=== PATIENT | female | born 1990 | race Caucasian/White ===

== ENCOUNTER 2017-04-04 14:48 | Inpatient (IN) | payer BC, OTHER ==
[2017-04-04] MEDS ORDERED: RINGERS SOLUTION,LACTATED 300 ML IV ONE (15:42)
[2017-04-04] MEDS ORDERED: DINOPROSTONE 10 MG VAGINAL INSERT.SR PV PRN (15:42)
[2017-04-04] MEDS ORDERED: OXYTOCIN/NORMAL SALINE 1,000 ML IV PRN (15:42)
[2017-04-04] MEDS ORDERED: DINOPROSTONE 10 MG VAGINAL INSERT.SR ONE (16:08)
[2017-04-04 16:12] LABS: AMORPHOUS SEDIMENT,URINE TRACE /HPF; APPEARANCE,URINE CLOUDY; BILIRUBIN,URINE NEGATIVE (NEGATIVE); CALCIUM OXALATE CRYSTALS,URINE TOO NUMEROUS TO CNT /HPF; GLUCOSE, URINE NEGATIVE (NEGATIVE); KETONES,URINE NEGATIVE (NEGATIVE); LEUKOCYTE ESTERASE,URINE MODERATE (NEGATIVE); NITRITE,URINE NEGATIVE (NEGATIVE); PROTEIN,URINE 100 mg/dL (NEGATIVE); URINE SPECIFIC GRAVITY 1.018; UROBILINOGEN,URINE NEGATIVE mg/dL (<2.0)
[2017-04-04 16:24] LABS: URINE BARBITURATES SCREEN NEGATIVE; URINE METHADONE SCREEN NEGATIVE; URINE OPIATES LOW NEGATIVE; URINE PHENCYCLIDINE SCREEN NEGATIVE
[2017-04-04 16:28] LABS: URINE CREATININE 189.8 mg/dL (16-327); URINE PROTEIN 134.3 mg/dL (<12)
[2017-04-04] MEDS: RINGERS SOLUTION,LACTATED 1,000 ML IV PRN (16:30)
[2017-04-04 16:35] LABS: ABSOLUTE EOSINOPHILS # (AUTO) 0.1 10^3/uL (0.0-0.6); ABSOLUTE LYMPHOCYTES (AUTO) 1.5 10^3/uL (0.5-4.7); ABSOLUTE MONOCYTES (AUTO) 0.8 10^3/uL (0.1-1.4); ABSOLUTE NEUT (AUTO) 6.8 10^3/uL (1.7-8.2); BASOPHILS % (AUTO) 0.5 % (0-2); EOSINOPHILS % (AUTO) 0.6 % (0-6); HEMATOCRIT 37.5 % (36.0-47.0); HEMOGLOBIN 12.9 g/dL (12.0-15.5); HGB HCT DIFFERENCE 1.2; LYMPHOCYTES % (AUTO) 16.4 % (13-45); MEAN CORPUSCULAR HEMOGLOBIN 30.3 pg (27.0-33.4); MEAN CORPUSCULAR HGB CONC 34.5 g/dL (32.0-36.0); MEAN CORPUSCULAR VOLUME 88 fl (80-97); MONOCYTES % (AUTO) 8.6 % (3-13); RED BLOOD COUNT 4.26 10^6/uL (3.72-5.28); RED CELL DISTRIBUTION WIDTH 12.8 % (11.5-14.0); SEGMENTED NEUTROPHILS % (AUTO) 73.9 % (42-78); WHITE BLOOD COUNT 9.2 10^3/uL (4.0-10.5)
[2017-04-04 16:54] LABS: ALANINE AMINOTRANSFERASE 32 U/L (9-52); ALBUMIN 3.1 g/dL (3.5-5.0); ALKALINE PHOSPHATASE 251 U/L (38-126); ANION GAP 9 (5-19); ASPARTATE AMINO TRANSFERASE 17 U/L (14-36); BILIRUBIN,DIRECT 0.2 mg/dL (0.0-0.4); BILIRUBIN,TOTAL 0.5 mg/dL (0.2-1.3); BLOOD UREA NITROGEN 9 mg/dL (7-20); CALCIUM 9.6 mg/dL (8.4-10.2); CARBON DIOXIDE 21 mmol/L (22-30); CHLORIDE 106 mmol/L (98-107); CREATININE RESULT 0.56 mg/dL (0.52-1.25); GLUCOSE 80 mg/dL (75-110); LDH 451 U/L (313-618); POTASSIUM 4.3 mmol/L (3.6-5.0); SODIUM 136.2 mmol/L (137-145); TOTAL PROTEIN 5.6 g/dL (6.3-8.2); URIC ACID 6.2 mg/dL (2.5-6.2)
[2017-04-04] MEDS ORDERED: HYDRALAZINE HCL INJ/PF 20 MG/1 ML SDV ONE (16:55)
[2017-04-04] MEDS ORDERED: HYDRALAZINE HCL INJ/PF 20 MG/1 ML SDV IV ONE (17:03)
[2017-04-04] MEDS ORDERED: ZOLPIDEM TARTRATE 5 MG TABLET PO ONE (20:38)
[2017-04-04] MEDS ORDERED: ZOLPIDEM TARTRATE 5 MG TABLET ONE (20:46)
[2017-04-05 05:24] LABS: ABSOLUTE BASOPHILS # (AUTO) 0.1 10^3/uL (0.0-0.2); ABSOLUTE EOSINOPHILS # (AUTO) 0.1 10^3/uL (0.0-0.6); ABSOLUTE LYMPHOCYTES (AUTO) 1.9 10^3/uL (0.5-4.7); ABSOLUTE NEUT (AUTO) 7.8 10^3/uL (1.7-8.2); BASOPHILS % (AUTO) 0.5 % (0-2); EOSINOPHILS % (AUTO) 0.8 % (0-6); HEMATOCRIT 40.7 % (36.0-47.0); HEMOGLOBIN 13.6 g/dL (12.0-15.5); HGB HCT DIFFERENCE 0.1; LYMPHOCYTES % (AUTO) 17.6 % (13-45); MEAN CORPUSCULAR HEMOGLOBIN 29.8 pg (27.0-33.4); MEAN CORPUSCULAR HGB CONC 33.5 g/dL (32.0-36.0); MEAN CORPUSCULAR VOLUME 89 fl (80-97); MONOCYTES % (AUTO) 8.9 % (3-13); RED BLOOD COUNT 4.57 10^6/uL (3.72-5.28); RED CELL DISTRIBUTION WIDTH 13.2 % (11.5-14.0); SEGMENTED NEUTROPHILS % (AUTO) 72.2 % (42-78); WHITE BLOOD COUNT 10.9 10^3/uL (4.0-10.5)
[2017-04-05 05:43] LABS: ALANINE AMINOTRANSFERASE 16 U/L (9-52); ALBUMIN 3.1 g/dL (3.5-5.0); ALKALINE PHOSPHATASE 236 U/L (38-126); ANION GAP 7 (5-19); ASPARTATE AMINO TRANSFERASE 31 U/L (14-36); BILIRUBIN,DIRECT 0.4 mg/dL (0.0-0.4); BILIRUBIN,TOTAL 0.9 mg/dL (0.2-1.3); BLOOD UREA NITROGEN 7 mg/dL (7-20); CALCIUM 9.5 mg/dL (8.4-10.2); CARBON DIOXIDE 20 mmol/L (22-30); CHLORIDE 110 mmol/L (98-107); CREATININE RESULT 0.56 mg/dL (0.52-1.25); GLUCOSE 75 mg/dL (75-110); LDH 666 U/L (313-618); POTASSIUM 5.2 mmol/L (3.6-5.0); SODIUM 136.8 mmol/L (137-145); TOTAL PROTEIN 5.7 g/dL (6.3-8.2); URIC ACID 6.5 mg/dL (2.5-6.2)
[2017-04-05] MEDS ORDERED: MISOPROSTOL 0.1 MG TABLET PO ONE (05:50)
[2017-04-05] MEDS ORDERED: MISOPROSTOL 0.1 MG TABLET ONE ×2 (05:55→10:50)
--- NOTE | 2017-04-05 08:50 | L&D Progress Notes ---
PROGRESS NOTES Datetime Report Generated by CPN: 04/05/2017 08:49 PROGRESS NOTE Impression: Reassuring Heart Rate Plan: Continue Present Management; Cervical Ripening; Anticipate Vaginal Delivery Informed Consent Obtained: Vaginal Delivery Vital Signs : Reviewed; Within Normal Limits Comment: resting in bed, admitted for IOL for Pre-e, cytotec in place, Cat 1 strip, plans on epidural VAGINAL EXAM Dilatation: 0 Effacement: 0 Station: -3 MEMBRANES Membranes: Intact Membranes: Intact FETUS A FHR - Baseline: 140 Monitoring: External US Variability: Moderate 6-25bpm Accelerations: 15X15 Decelerations: None : 37.2 : 37.2 Presentation: Vertex SIGNATURE SIGNATURE: [id number] Assignment: Gwendolyn Mercado MD Signature: with User ID: [email or web address] : with User ID: [email or web address]
--- NOTE | 2017-04-05 16:16 | L&D Progress Notes ---
PROGRESS NOTES Datetime Report Generated by CPN: 04/05/2017 16:16 PROGRESS NOTE Impression: Gest. HTN/PreEclampsia/Eclampsia Plan: Cervical Ripening Informed Consent Obtained: Induction of Labor Comment: pt denies preeclampsia sxs. Plan cervidil again as cervix still to firm and long for mechanical dilation. Recheck labs in am. FETUS A FHR Category: Category I FETUS C SIGNATURE: [id number] Signature: with User ID: [email or web address]
[2017-04-05] MEDS ORDERED: DINOPROSTONE 10 MG VAGINAL INSERT.SR ONE (17:01)
[2017-04-05] MEDS ORDERED: ZOLPIDEM TARTRATE 5 MG TABLET ONE (20:19)
[2017-04-05] MEDS ORDERED: ZOLPIDEM TARTRATE 5 MG TABLET PO ONE (20:21)
[2017-04-06] MEDS ORDERED: OXYTOCIN/NORMAL SALINE 1,000 ML IV PRN (06:27)
[2017-04-06 06:29] LABS: ALANINE AMINOTRANSFERASE 24 U/L (9-52); ALBUMIN 3.1 g/dL (3.5-5.0); ALKALINE PHOSPHATASE 247 U/L (38-126); ANION GAP 8 (5-19); ASPARTATE AMINO TRANSFERASE 21 U/L (14-36); BILIRUBIN,DIRECT 0.2 mg/dL (0.0-0.4); BILIRUBIN,TOTAL 0.8 mg/dL (0.2-1.3); BLOOD UREA NITROGEN 5 mg/dL (7-20); CARBON DIOXIDE 20 mmol/L (22-30); CHLORIDE 108 mmol/L (98-107); CREATININE RESULT 0.57 mg/dL (0.52-1.25); GLUCOSE 72 mg/dL (75-110); LDH 410 U/L (313-618); POTASSIUM 4.5 mmol/L (3.6-5.0); SODIUM 135.5 mmol/L (137-145); TOTAL PROTEIN 5.8 g/dL (6.3-8.2); URIC ACID 7.1 mg/dL (2.5-6.2)
[2017-04-06] MEDS ORDERED: OXYTOCIN/NORMAL SALINE 20 UNIT/1,000 ML RTUINJ ONE (06:35)
[2017-04-06 06:38] LABS: ABSOLUTE BASOPHILS # (AUTO) 0.1 10^3/uL (0.0-0.2); ABSOLUTE EOSINOPHILS # (AUTO) 0.1 10^3/uL (0.0-0.6); ABSOLUTE LYMPHOCYTES (AUTO) 1.7 10^3/uL (0.5-4.7); ABSOLUTE MONOCYTES (AUTO) 0.9 10^3/uL (0.1-1.4); ABSOLUTE NEUT (AUTO) 8.1 10^3/uL (1.7-8.2); BASOPHILS % (AUTO) 0.5 % (0-2); EOSINOPHILS % (AUTO) 0.5 % (0-6); HEMATOCRIT 39.5 % (36.0-47.0); HEMOGLOBIN 13.4 g/dL (12.0-15.5); HGB HCT DIFFERENCE 0.7; LYMPHOCYTES % (AUTO) 15.9 % (13-45); MEAN CORPUSCULAR HEMOGLOBIN 29.8 pg (27.0-33.4); MEAN CORPUSCULAR VOLUME 88 fl (80-97); RED CELL DISTRIBUTION WIDTH 13.1 % (11.5-14.0); SEGMENTED NEUTROPHILS % (AUTO) 75.1 % (42-78); WHITE BLOOD COUNT 10.8 10^3/uL (4.0-10.5)
[2017-04-06] MEDS ORDERED: PROMETHAZINE HCL INJ 25 MG/1 ML VIAL IV ONE (06:46)
[2017-04-06] MEDS ORDERED: PROMETHAZINE HCL INJ 25 MG/1 ML VIAL ONE (06:50)
[2017-04-06] MEDS ORDERED: NALBUPHINE HCL INJ 10 MG/1 ML AMPULE ONE (10:11)
[2017-04-06] MEDS ORDERED: ONDANSETRON HCL INJ/PF 4 MG/2 ML SDV ONE (10:11)
[2017-04-06] MEDS ORDERED: NALBUPHINE HCL INJ 10 MG/1 ML AMPULE IV ONE (10:13)
[2017-04-06] MEDS ORDERED: ONDANSETRON HCL INJ/PF 4 MG/2 ML SDV IV ONE (10:13)
[2017-04-06] MEDS ORDERED: EPHEDRINE SULFATE INJ 50 MG/1 ML AMPULE ONE ×2 (10:58→17:01)
[2017-04-06] MEDS ORDERED: PHENYLEPHRINE HCL INJ/PF 10 MG/1 ML SDV ONE ×2 (10:58→17:01)
[2017-04-06] MEDS ORDERED: FENTANYL CITRATE INJ/PF 100 MCG/2 ML AMPUL ONE ×2 (10:58→17:01)
[2017-04-06] MEDS ORDERED: FENTANYL/BUPIVACAINE/NS/PF 0 MCG/0 ML RTUINJ EPI ONE (10:59)
[2017-04-06] MEDS ORDERED: BUPIVACAINE HCL 0.25 % INJ/PF (2.5 MG/1 ML) 30 ML VIAL ONE ×2 (10:59→17:02)
--- NOTE | 2017-04-06 11:08 | L&D Progress Notes ---
PROGRESS NOTES Datetime Report Generated by CPN: 04/06/2017 11:07 PROGRESS NOTE Impression: Normal Progression of Labor Procedures: Sterile Vag Exam Plan: Continue Present Management; Cervical Ripening Informed Consent Obtained: Vaginal Delivery; Induction of Labor; Risks, Benefits and Alternatives Discussed Vital Signs : Reviewed; Within Normal Limits Comment: 37+4ega presents for IOL due to PreE and 24 hr UTP of greater than 1200. Pt recieved Cervidil on Tu and then cytotec yesterday and then began pitocin this morning. cvx 1/50/-2. cooks catheter placed. will continue iol. VAGINAL EXAM Dilatation: 1 Effacement: 50 Station: -2 Contractions: rare FETUS A FHR - Baseline: 145 Monitoring: External US Variability: Moderate 6-25bpm Accelerations: 15X15 Decelerations: None FHR Category: Category I SIGNATURE SIGNATURE: [id number] Signature: with User ID: [email or web address]
[2017-04-06] MEDS ORDERED: HYDRALAZINE HCL INJ/PF 20 MG/1 ML SDV ONE (12:22)
--- NOTE | 2017-04-06 14:59 | L&D Progress Notes ---
PROGRESS NOTES Datetime Report Generated by CPN: 04/06/2017 14:59 PROGRESS NOTE Impression: Normal Progression of Labor Procedures: Sterile Vag Exam Plan: Continue Present Management; Induction; Cervical Ripening Informed Consent Obtained: Vaginal Delivery; Induction of Labor; Risks, Benefits and Alternatives Discussed Vital Signs : Reviewed; Within Normal Limits Comment: pt with Cooks in place. Vaginal portion partially deflated and cervix 3cm/50. Vaginal bulb reinflated. kaley give pit rest and D5W. Then restart pitocin at half. Pt now also desires epidural. Anticiapte . VAGINAL EXAM Dilatation: 3 Effacement: 50 FETUS A FHR - Baseline: 150 Monitoring: External US Variability: Moderate 6-25bpm Accelerations: 15X15 Decelerations: None FHR Category: Category I FETUS C SIGNATURE: [id number] Signature: with User ID: [email or web address]
[2017-04-06 15:07] LABS: ABSOLUTE LYMPHOCYTES (AUTO) 1.4 10^3/uL (0.5-4.7); ABSOLUTE MONOCYTES (AUTO) 0.9 10^3/uL (0.1-1.4); ABSOLUTE NEUT (AUTO) 10.4 10^3/uL (1.7-8.2); BASOPHILS % (AUTO) 0.3 % (0-2); EOSINOPHILS % (AUTO) 0.1 % (0-6); HEMOGLOBIN 13.4 g/dL (12.0-15.5); HGB HCT DIFFERENCE -0.8; LYMPHOCYTES % (AUTO) 10.7 % (13-45); MEAN CORPUSCULAR HEMOGLOBIN 29.1 pg (27.0-33.4); MEAN CORPUSCULAR HGB CONC 32.8 g/dL (32.0-36.0); MEAN CORPUSCULAR VOLUME 89 fl (80-97); MONOCYTES % (AUTO) 7.2 % (3-13); RED BLOOD COUNT 4.62 10^6/uL (3.72-5.28); RED CELL DISTRIBUTION WIDTH 12.8 % (11.5-14.0); SEGMENTED NEUTROPHILS % (AUTO) 81.7 % (42-78); WHITE BLOOD COUNT 12.7 10^3/uL (4.0-10.5)
[2017-04-06 15:32] LABS: ALANINE AMINOTRANSFERASE 26 U/L (9-52); ALBUMIN 3.2 g/dL (3.5-5.0); ALKALINE PHOSPHATASE 271 U/L (38-126); ANION GAP 11 (5-19); ASPARTATE AMINO TRANSFERASE 20 U/L (14-36); BILIRUBIN,DIRECT 0.2 mg/dL (0.0-0.4); BILIRUBIN,TOTAL 0.9 mg/dL (0.2-1.3); BLOOD UREA NITROGEN 6 mg/dL (7-20); CALCIUM 10.1 mg/dL (8.4-10.2); CARBON DIOXIDE 19 mmol/L (22-30); CHLORIDE 106 mmol/L (98-107); CREATININE RESULT 0.59 mg/dL (0.52-1.25); GLUCOSE 63 mg/dL (75-110); POTASSIUM 4.6 mmol/L (3.6-5.0); SODIUM 136.4 mmol/L (137-145); URIC ACID 7.4 mg/dL (2.5-6.2)
[2017-04-06] MEDS ORDERED: FENTANYL/BUPIVACAINE/NS/PF 200 MCG/100 ML RTUINJ EPI ONE (17:02)
--- NOTE | 2017-04-06 21:44 | L&D Progress Notes ---
PROGRESS NOTES Datetime Report Generated by VANESSA: 04/06/2017 21:44 PROGRESS NOTE Impression: Normal Progression of Labor Procedures: Intrauterine Pressure Catheter; Sterile Vag Exam Plan: Continue Present Management; Induction Informed Consent Obtained: Vaginal Delivery; Risks, Benefits and Alternatives Discussed Vital Signs : Reviewed; Within Normal Limits Comment: 37+4ega admitted for PreE and 24 hr UTP greater than 1200. Cvx at admission on 04/04 was closed/thick/hi. Pt recieved cervidil overnight on 04/04 and then on 04/05 recieved cytotec then was on pitocin by this morning when I accepted care of the patient. She was given Cooks catheter which did effect some change in her cervix but mechanical dilation cervical change an dnot in labor yet. Pt ws having sporadic ctx despite pitocin at 20 and pitrest performed then AROM performed at 1906. Pitocin maxed at 20 and IUPC placed at 2106. Cervix is now more anterior in pelvis but presenting part is stil high as she is not in labor yet. Will continue with IOL and pitocin at this time. May need an additional pit rest at some point tonight. With placement of IUPC MVUs appear adequate immediately but patient still not in active labor. Will re-eval in 3-4 hours. If no change in 3-4 hours will pit rest again. Pelvis feels adequate for delivery and baby feels approx 7#. Cat I FHR tracing. WIll continue to attempt to effect a vaginal delivery. VAGINAL EXAM Dilatation: 4 Effacement: 50 Station: -3 Contractions: q 2 MEMBRANES Membranes: Ruptured FETUS A FHR - Baseline: 130 Monitoring: External US Variability: Moderate 6-25bpm Accelerations: 15X15 Decelerations: None FHR Category: Category I : 37.4 FETUS C SIGNATURE: [id number] Signature: with User ID: [email or web address]
[2017-04-06] MEDS: RINGERS SOLUTION,LACTATED 1,000 ML IV PRN (23:18)
[2017-04-07] MEDS ORDERED: HYDRALAZINE HCL INJ/PF 20 MG/1 ML SDV ONE ×2 (01:25→20:07)
[2017-04-07] MEDS ORDERED: DEXTROSE 5%-LACTATED RINGERS 250 ML IV PRN ×2 (01:31→02:44)
[2017-04-07] MEDS ORDERED: HYDRALAZINE HCL INJ/PF 20 MG/1 ML SDV IV ONE ×2 (02:00→20:01)
[2017-04-07] MEDS ORDERED: CITRIC ACID/SODIUM CITRATE ORAL SOLN 15 ML UDCUP ONE ×2 (02:35→06:13)
[2017-04-07] MEDS ORDERED: FENTANYL/BUPIVACAINE/NS/PF 200 MCG/100 ML RTUINJ EPI ONE (03:37)
[2017-04-07] MEDS ORDERED: PROMETHAZINE HCL INJ 25 MG/1 ML VIAL IV ONE (05:00)
[2017-04-07] MEDS ORDERED: PROMETHAZINE HCL INJ 25 MG/1 ML VIAL ONE (05:02)
[2017-04-07] MEDS ORDERED: LIDOCAINE 2%/EPINEPHRINE INJ 20 ML VIAL ONE (06:13)
[2017-04-07] MEDS ORDERED: CEFAZOLIN 2 GM/D5W RTU 2 GM/50 ML RTUPB IV ONE (06:13)
[2017-04-07] MEDS ORDERED: SODIUM BICARBONATE 8.4% INJ 50 MEQ/50 ML DISP.SYRIN ONE (06:14)
--- NOTE | 2017-04-07 06:18 | L&D Progress Notes ---
PROGRESS NOTES Datetime Report Generated by VANESSA: 04/07/2017 06:18 PROGRESS NOTE Impression: Arrest of Dilatation/Descent Procedures: Sterile Vag Exam Plan: Induction; Deliver- Section Informed Consent Obtained: Vaginal Delivery; Section Delivery; Risks, Benefits and Alternatives Discussed Vital Signs : Reviewed; Within Normal Limits Comment: 37+5ega here for IOL due to PreE. 24 hr UTP greater than 1200. BP's intermittently elevated but responsive to hydralazine. Cvx at AROM was 4cm and cvx at 2106 was 4-5cm. REviewed plan with pt previously and plan was to recheck pt at 0130ish which was done and cvx 5cm. Pitocin rest and D5W done as MVUs are inadequate despite 20 units of pitocin. Cvx exam now 5cm poss 5-6 but presenting part is still at above -3 station and presenting part which had to be confirmed with US (vertex) situated posterior to pubic bone and position has not changed since my initial evaluation yesterday morning. Cvx dilation really unchanged since 2100 last night and she had adequate MVUs for a period of 4 + hours but now unable to get MVUs adequate again. REviewed concerns of position and still not descended into pelvis. Patient has had IOL attempted since Monday evening. SHe and her discussed options and both desire to proceed with section for Failed IOL, Arrest of Dilation and suspected CPD. VAGINAL EXAM Dilatation: 5 Effacement: 50 Station: -3 MEMBRANES Membranes: Ruptured Amniotic Fluid Color: Clear FETUS A Monitoring: External US Variability: Moderate 6-25bpm Accelerations: 15X15 Decelerations: None FETUS C SIGNATURE: [id number] Signature: with User ID: Giana
[2017-04-07] MEDS ORDERED: OXYTOCIN 10 UNIT/ML VIAL ONE (06:31)
[2017-04-07] MEDS ORDERED: PROPOFOL INJ 200 MG/20 ML VIAL IV ONE (06:32)
[2017-04-07] MEDS ORDERED: MIDAZOLAM 2 MG/2 ML INJ ONE (06:32)
[2017-04-07] MEDS ORDERED: EPHEDRINE SULFATE INJ 50 MG/1 ML AMPULE ONE (06:32)
[2017-04-07] MEDS ORDERED: FENTANYL CITRATE INJ/PF 100 MCG/2 ML AMPUL ONE ×3 (06:32→09:17)
[2017-04-07] MEDS ORDERED: DIPHENHYDRAMINE HCL 50 MG/ML VIAL IV PRN (06:48)
[2017-04-07] MEDS ORDERED: MEPERIDINE HCL/PF INJ 25 MG/1 ML DISP.SYRIN IV PRN (06:48)
[2017-04-07] MEDS ORDERED: PROMETHAZINE HCL INJ 25 MG/1 ML VIAL IV PRN ×3 (06:48→09:14)
[2017-04-07] MEDS ORDERED: FENTANYL CITRATE INJ/PF 100 MCG/2 ML AMPUL IV PRN ×3 (06:48)
[2017-04-07] MEDS ORDERED: MORPHINE SULFATE 10 MG/ML INJ IV PRN (06:48)
[2017-04-07] MEDS ORDERED: KETAMINE HCL INJ 500 MG/10 ML VIAL ONE (07:00)
[2017-04-07] MEDS ORDERED: MISOPROSTOL 0.2 MG TABLET ONE (07:19)
[2017-04-07] MEDS ORDERED: MORPHINE SULFATE 10 MG/ML INJ ONE (07:31)
--- NOTE | 2017-04-07 08:46 | Brief Operative Note ---
BRIEF OPERATIVE REPORT DATE OF SURGERY: 04/07/17 TIME OF SURGERY: 07:00 PREOPERATIVE DIAGNOSIS: Arrest of Dilation, Failed Induction of Labor, suspected Cephalic Pelvic Disproportion, PreE POSTOPERATIVE DIAGNOSIS: PITA - delivered SURGEON: SONIA AGUILLON FINDINGS: VFI delivered in cephalic presentation with loose nuchal cord easily reduced, Apgars 8/9, weight 2980g (6#9oz), time of 0714, normal tubes and ovaries bilaterally, left fundal area with poor tone and distended/thin myometrium, sterile mild 240ml back fill bladder which confirmed bladder intact. UOP 250ml (another 50ml noted in small bag after initial drainage), IVF 900ml COMPLICATIONS: None ESTIMATED BLOOD LOSS: 600ml TISSUE REMOVED OR ALTERED: placenta and cord - not sent to pathology TECHNICAL PROCEDURE: Primary [facility]
[2017-04-07] MEDS ORDERED: MAGNESIUM SULFATE 4 GM/100 ML RTUPB IV ONE (08:52)
--- NOTE | 2017-04-07 08:53 | PDOC DELIVERY SUMMARY ---
Delivery Summary - Maternal Hx : I Hx Para: 0 Hx # Term Pregnancies: 0 Hx # Pregnancies: 0 Hx Total # of Abortions (Sponateous & Elective): 0 Number of Living Children: 0 SCOT: 04/23/17 Gestational Age: 37+5 Risk Factors: Pre-Eclampsia Intrapartum: Pre-Eclampsia Ruptured Membranes: AROM Fluids: Clear - Delivery Labor: Induction, Prolonged- Greater Than 20 Hours Presentation: Vertex Heart Rate Monitoring: Externally Uterine Contraction Monitoring: Internal Support Person Present: Yes - in hallway due to general anes Location: OR : Primary Placenta: Within Normal Limits Placenta Description: Normal Number of Vessels (Cord): 3 Nuchal Cord: Yes Delivery of Placenta Date: 04/07/17 Delivery of Placenta Time: 07:15 - Medications Type of Anesthesia:: Other - epidural not working. - Delivery Medications Delivery Meds: Cytotec 1000mcg Per Rectum/Vagina - Infant Assess and Care Female Delivery of Infant Date: 04/07/17 Delivery of Time: 07:14 at 1 minute: 8 at 5 minutes: 9 Preprinted Number On Band: [id number] Infant Skin to Skin: No [facility] Weight: 2.98 kg - Delivery Personnel FILM MAKER: RADHA MILLER RN: SALLIE JOHANSEN MD: SONIA AGUILLON
[2017-04-07] MEDS ORDERED: DIPH/PERTUSS(ACELL)/TETANUS VAC/PF 0.5 ML SYR (>=10YO) IM PRN (09:14)
[2017-04-07] MEDS ORDERED: MEASLES,MUMPS&RUBELLA VACC/PF 0.5 ML VIAL SUBCUT PRN (09:14)
[2017-04-07] MEDS ORDERED: ACETAMINOPHEN 100 ML IV PRN (09:14)
[2017-04-07] MEDS ORDERED: OXYTOCIN/NORMAL SALINE 1,000 ML IV PRN (09:14)
[2017-04-07] MEDS ORDERED: SIMETHICONE 80 MG TAB.CHEW PO PRN (09:14)
[2017-04-07] MEDS ORDERED: ACETAMINOPHEN 325 MG TABLET PO PRN (09:14)
[2017-04-07] MEDS ORDERED: OXYCODONE-ACETAMINOPHEN 5-325 MG TABLET PO PRN (09:14)
--- NOTE | 2017-04-07 09:14 | Operative Report ---
Operative Report DATE OF SURGERY: 04/07/17 PREOPERATIVE DIAGNOSIS: Arrest of Dilation, Failed Induction of Labor, suspected Cephalic Pelvic Disproportion, PreE POSTOPERATIVE DIAGNOSIS: PITA - delivered OPERATION: Primary LT[facility] SURGEON: SONIA AGUILLON ANESTHESIA: GA - epidural not working. TISSUE REMOVED OR ALTERED: placenta and cord - not sent to pathology COMPLICATIONS: None ESTIMATED BLOOD LOSS: 600ml INTRAOPERATIVE FINDINGS: VFI delivered in cephalic presentation with loose nuchal cord easily reduced, Apgars 8/9, weight 2980g (6#9oz), time of 0714 , normal tubes and ovaries bilaterally, left fundal area with poor tone and distended/thin myometrium, sterile mild 240ml back fill bladder which confirmed bladder intact. UOP 250ml (another 50ml noted in small bag after initial drainage), IVF 900ml PROCEDURE: Anesthesia provider: [Nasreen Santana CRNA, Vignesh ROSS] Estimated blood loss: [600ml] Urine output: [250ml] IV fluids: [900ml] Indications: [27yo at 37+5ega presented for IOL on 04/04 for PreE and 24 hr UTP of 1200. IOL initiated with cervidil on 04/04 and then cytotec on 04/05. On 04/06 pitocin initiated and cervix reached 1cm and Cooks catheter placed with assistance of SSE. Cooks catheter removed in the late afternoon and then AROM performed at 1906. She reached cervical dilation of 4cm then 4-5 cm and station of infant never descended below -3 station. She had intermittently elevated BPs and required multiple doses of hydralazine. MVUs reached greater than 200 for several hours but no cervical change effected then MVUs decreased and pitocin rest for 1 hour and D5W given and pitocin restarted at half and increased appropriately. MVUs never reached adequate again and no further descent or cervical dilation achieved. Discussed with patient and the family regarding concern for Arrest of Dilation and failed IOL with no progress of cervical dilation or station since admission. The risks/benefits/alternatives were reviewed with the patient and she desires to proceed with planned procedure.] Procedure: The patient was taken to the operating room where epidural anesthesia was found to be inadequate and general anesthesia was obtained. She was then prepped and draped in the normal sterile fashion and placed in the dorsal supine position with a leftward tilt prior to General Anesthesia obtained. A Pfannenstiel skin incision was then made and carried through to the underlying layers of the fascia with the scalpel. The fascia was incised in the midline and the incision extended laterally with the Mancilla scissors. The superior aspect of the fascial incision was then grasped with Sofía clamps elevated and the underlying rectus muscles dissected off [bluntly]. Attention was then turned to the inferior aspect of the fascial incision which in a similar fashion was grasped, tented up with Felicia clamps, and the rectus muscles dissected off [bluntly]. The rectus muscles were then in the midline and the peritoneum at the amount identified and entered [bluntly]. The peritoneal incision was then extended superiorly and inferiorly with good visualization of the bladder. The bladder blade was inserted and the lower uterine segment incised in a transverse fashion with the scalpel. The uterine incision was then extended bluntly. The bladder blade was removed and the infant's head was delivered from cephalic presentation atraumatically. The nose and mouth were suctioned and the cord doubly clamped and cut. And the infant was handed off to waiting pediatricians. The placenta was then delivered spontaneously and the uterus exteriorized and cleared of all clots and debris. The uterine incision was then repaired with 1- 0 Vicryl in a running locked fashion. A second layer of the same suture was used to obtain hemostasis via imbrication of the initial layer. There was a small tear in the area which would have been the bladder flap and appeared to only include the serosal reflection. THe Bladder was then back filled with 240ml of sterile milk with no evidence of bladder injury. The serosal injury was repaired with 3-0 chromic in running fashion. Good hemostasis and the remainder of the bladder flap was then repaired with 3-0 chromic in a running fashion. The uterus was returned to the patient's abdomen and Interceed was placed overlying the uterine incision to prevent adhesions. The gutters were cleared of all clots and debris. All operative sites were noted to be hemostatic. The fascia was reapproximated with 0 Vicryl in a running fashion from each lateral edge to the midline. The skin was closed with 3-0 Monocryl in a running subcuticular fashion with overlying Dermabond for additional dressing as well as wound closure. The patient tolerated the procedure well. Sponge lap needle and instrument counts are correct times 2. 2 g of Ancef were given prior to skin incision. The patient was taken to the recovery area awake and in stable condition. The patient was initiated on Magnesium Sulfate due to decreased urine output and elevated BPs with known PreE.
--- NOTE | 2017-04-07 09:24 | Delivery Summary ---
Del Sum A-C Datetime Report Generated by N: 04/07/2017 09:24 DELIVERY PERSONNEL DELIVERY PERSONNEL: [id number] Delivery Doctor:: Milly Nichols MD Anesthesiologist:: Mima Medellin MD CLOTH BOLT BANDER:: Nasreen Peace CRNA Labor and Delivery Nurse:: Iza Gonzales RNcompliance tester Nurse:: Koki King RN Neonatal Nurse Practitioner:: GABI Henry Nursery Nurse:: Sandra Nair RN (Annotations: Data stored by [employer]en[employer] on behalf of user) Computer Graphic Artist/ELECTRIC METER SETTER: Steph Venegas, PLUGMAN Computer Graphic Artist/ELECTRIC METER SETTER: Jose Alejandro López PLUGMAN MATERNAL INFORMATION Delivery Anesthesia: General Medications After Delivery: Pitocin Bolus-Please Comment; Pitocin Drip 20 Units/1000ml NSS; Other-Please Comment Meds After Delivery Comment: Cytotec 1000mcg [place] Maternal Complications: None LABOR SUMMARY EDC: 04/23/2017 00:00 No. Babies in Womb: 1 Attempted: No Labor Anesthesia: Epidural LABOR INFORMATION Reason for Induction: Pre-Eclampsia Cervical Ripening Agents: Cervidil; Adams Balloon; Cytotec @ Oxytocin: Induction Group B Beta Strep: neg Antibiotics # of Doses: 1 Name of Antibiotic Given: Ancef 2G Steroids Given: None Reason Steroids Not Administered: Not Applicable MEMBRANES Membranes Rupture Method: Artificial Rupture of Membranes: 04/06/2017 19:06 Length of Rupture (hr): 12.13 Amniotic Fluid Color: Clear Amniotic Fluid Amount: Moderate Amniotic Fluid Odor: Normal STAGES OF LABOR Stage 3 hr: 0 Stage 3 min: 1 VAGINAL DELIVERY Episiotomy: None Laceration Extension: N/A Laceration Type: None Laceration Repair: Not Applicable Sponge Count Correct: N/A CSECTION DELIVERY Primary Indication: Secondary Arrest of Dilatation Secondary Indication: Failed Induction CSection Urgency: Non-Scheduled CSection Incidence: Primary Labor: Labor Elective: Nonelective CSection Incision: Lower Uterine Transverse BABY A INFORMATION Infant Delivery Date/Time: 04/07/2017 07:14 Method of Delivery: Born in Route : No : N/A Forceps: N/A Vacuum Extraction: N/A Shoulder Dystocia : No PRESENTATION/POSITION BABY A Presentation: Cephalic Cephalic Presentation: Vertex Breech Presentation: N/A PLACENTA INFORMATION BABY A Placenta Delivery Time : 04/07/2017 07:15 Placenta Method of Delivery: Manual Removal Placenta Status: Delivered SCORES BABY A Heart Rate 1 min: >100 bpm Resp Effort 1 min: Good Cry Reflex Irritability 1 min: Cough or Sneeze or Pulls Away Muscle Tone 1 min: Active Motion Color 1 min: Blue/Pale Resuscitation Effort 1 min: Tactile Stimulation SCORE 1 MIN: 8 Heart Rate 5 min: >100 bpm Resp Effort 5 min: Good Cry Reflex Irritability 5 min: Cough or Sneeze or Pulls Away Muscle Tone 5 min: Active Motion Color 5 min: Body [place], Extremities Blue Resuscitation Effort 5 min: Tactile Stimulation SCORE 5 MIN: 9 INFANT INFORMATION BABY A Gestational Age at Delivery: 37.5 Gestational Status: Early Term- 37- 38.6 Weeks Outcome : Liveborn Condition : Stable Infant Sex: Female IDENTIFICATION BABY A Verification Date/Time: 04/07/2017 07:20 ID Band Number: [id number] Mother's Name Verified: Yes Infant RN Verifying : ATeja Gonzales RN WEIGHT/LENGTH BABY A Infant Birthweight (gm): 2980 Infant Weight (lb): 6 Weight (oz): 9 Length (in): 19.00 Infant Length (cm): 48.26 CORD INFORMATION BABY A No. Cord Vessels: 3 Nuchal Cord : Around Neck x1, Loose Cord Blood Taken: Yes-For Eval (Mom's Blood Type - or O+) Infant Suction: Mouth; Nose ASSESSMENT BABY A Infant Complications: None Physical Findings at Delivery: Within Normal Limits Respirations: Appears Normal Skin to Skin: No Pneumatic System Conveyor Operator/ALS Called : No Infant Care By: NURSERY STAFF Transferred To: Nursery BABY B INFORMATION : N/A
[2017-04-07] MEDS ORDERED: KETOROLAC TROMETHAMINE INJ/PF 30 MG/1 ML SDV ONE ×2 (09:27→17:28)
[2017-04-07] MEDS ORDERED: ACETAMINOPHEN 100 ML IV ONE (09:27)
[2017-04-07] MEDS: KETOROLAC TROMETHAMINE INJ/PF 30 MG/1 ML SDV IV SCH ×2 (09:36→17:31)
[2017-04-07] MEDS ORDERED: DEXAMETHASONE SOD PHOSPHATE INJ 4 MG/1 ML VIAL ONE (10:17)
[2017-04-07] MEDS ORDERED: SUCCINYLCHOLINE CHLORIDE INJ 200 MG/10 ML VIAL ONE (10:17)
[2017-04-07] MEDS ORDERED: ONDANSETRON HCL INJ/PF 4 MG/2 ML SDV ONE (10:17)
[2017-04-07] MEDS ORDERED: HYDROMORPHONE HCL INJ/PF 2 MG/ML AMPULE ONE ×2 (11:26→22:55)
[2017-04-07] MEDS: HYDROMORPHONE HCL INJ/PF 2 MG/ML AMPULE IV PRN ×2 (11:27→22:53)
[2017-04-07] MEDS: DOCUSATE SODIUM 100 MG CAPSULE PO SCH ×2 (17:17→17:30)
[2017-04-07] MEDS: PRENATAL VITAMIN W-O CA NO5/FE FUMARATE/FA CAPSULE PO SCH (17:17)
[2017-04-07] MEDS ORDERED: DOCUSATE SODIUM 100 MG CAPSULE ONE (17:30)
[2017-04-07] MEDS: RINGERS SOLUTION,LACTATED 1,000 ML IV PRN (19:55)
[2017-04-07] MEDS: OXYCODONE-ACETAMINOPHEN 5-325 MG TABLET PO PRN (21:33)
[2017-04-07] MEDS ORDERED: OXYCODONE-ACETAMINOPHEN 5-325 MG TABLET ONE (21:34)
[2017-04-07] MEDS ORDERED: NIFEDIPINE 30 MG TAB.ER.24 PO ONE (22:45)
[2017-04-07] MEDS ORDERED: NIFEDIPINE 30 MG TAB.ER.24 PO SCH (23:00)
--- NOTE | 2017-04-08 02:26 | Admission Physical ---
Datetime Report Generated by CPN: 04/08/2017 02:26 CURRENT ADMISSION Chief Complaint: Scheduled Induction of Labor Indication for Induction: Eclampsia-Mild Admit Plan: Admit to Unit; Initiate Labor Induction Protocol ALLERGIES Medication Allergies: No Medication Allergies: No Known Allergies (04/04/2017) Medication Allergies: no Latex: No Latex Allergies Food Allergies: no Environmental Allergies: no OBSTETRICAL HISTORY EDC: 04/23/2017 00:00 : 1 Para: 0 Term: 0 : 0 SAB: 0 IAB: 0 Ectopic: 0 Livin Cesareans: 0 VBACs: 0 Multiple Births: 0 Gestational Diabetes: No Rh Sensitization: No Incompetent Cervix: No DEENA: No Infertility: No ART Treatment: No Uterine Anomaly: No IUGR: No Hx Previous C/S: No Macrosomia: No Hx Loss/Stillborn: No PIH: Yes Hx : No Placenta Previa/Abruption: No Depression/PP Depression: No PTL/PROM: No Post Hemorrhage: No Current Procedures: Ultrasound SEE RECORDS Alcohol: No Marijuana : No Cocaine: No Other Illicit Drugs: No Cigarettes: Never Smoker. 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: No Heart Disease: No Hosp/Surgery: No Autoimmune Disorder: No Anesthetic Complications: No Kidney Disease: No Abnormal Pap Smear: No Neuro/Epilepsy: Yes Psychiatric Disorders: No Other Medical Diseases: No Hepatitis/Liver Disease: No Significant Family History: No Varicosities/Phlebitis: No Trauma/Violence : No Thyroid Dysfunction: No Medical History Comments: Migraines not diagnosed/Ora teeth INFECTIOUS HISTORY Gonorrhea: No Genital Herpes: No Chlamydia: No Tuberculosis: No Syphilis: No Hepatitis: No HIV/AIDS Exposure: No Rash or Viral Illness: No HPV: No PHYSICAL EXAM General: Normal HEENT: Normal Neurologic: Normal Thyroid: Deferred Heart: Normal Lungs: Normal Breast: Deferred Back: Normal Abdomen: Normal Genitourinary Exam: Normal Extremities: Normal DTRs: Normal Pelvic Type: Adequate Vital Signs: Reviewed Details Vital Signs: hypertensive VAGINAL EXAM Dilatation: 5 Dilatation: 4 Dilatation: 3 Dilatation: 1 Dilatation: 0 Effacement: 50 Effacement: 50 Effacement: 50 Effacement: 50 Effacement: 0 Station: -3 Station: -3 Station: -2 Station: -3 Contraction Comments: q 2 Contraction Comments: rare MEMBRANES Membranes: Ruptured Membranes: Ruptured Membranes: Intact Membranes: Intact Amniotic Fluid Color: Clear FETUS A EGA: 37.3 Monitoring: External US FHR- Baseline: 140 Variability: Moderate 6-25bpm Accelerations: 15X15 Decelerations: None FHR Category: Category I Presentation: Vertex Admit Comment: will get serial PIH labs IV meds for BP control and poosible Magnesium sulfate PLANS FOR LABOR AND DELIVERY Labor and Delivery: None Pain Management: Epidural Feeding Preference: Breast Benefit of Breast Feed Discussed: Yes Circumcision: N/A INFORMED CONSENT Informed Consent Obtained: Vaginal Delivery; Section Delivery; Risks, Benefits and Alternatives Discussed Informed Consent Obtained: Vaginal Delivery; Risks, Benefits and Alternatives Discussed Informed Consent Obtained: Vaginal Delivery; Induction of Labor; Risks, Benefits and Alternatives Discussed Informed Consent Obtained: Vaginal Delivery; Induction of Labor; Risks, Benefits and Alternatives Discussed Informed Consent Obtained: Induction of Labor Informed Consent Obtained: Vaginal Delivery Signature: with User ID: [email or web address]
[2017-04-08] MEDS: IBUPROFEN 800 MG TABLET PO SCH ×3 (06:14→17:06)
[2017-04-08 07:42] LABS: HEMATOCRIT 35.4 % (36.0-47.0); HGB HCT DIFFERENCE 0.6; MEAN CORPUSCULAR HEMOGLOBIN 30.8 pg (27.0-33.4); MEAN CORPUSCULAR HGB CONC 33.9 g/dL (32.0-36.0); MEAN CORPUSCULAR VOLUME 91 fl (80-97); RED BLOOD COUNT 3.89 10^6/uL (3.72-5.28); RED CELL DISTRIBUTION WIDTH 13.1 % (11.5-14.0); WHITE BLOOD COUNT 13.1 10^3/uL (4.0-10.5)
--- NOTE | 2017-04-08 09:19 | PDOC PROGRESS REPORT ---
Subjective-OB Subjective: Post Delivery Day: 27 year old. Denies any needs at this time Doing well, pain under control, breast feeding, no flatus but feels gas, eating well, ambulating to BR, voiding,no c/o Physical Exam (OB) Vital Signs: Temp Pulse Resp BP Pulse Ox 98.4 F 95 16 146/89 H 97 04/08/17 08:02 04/08/17 08:02 04/08/17 08:02 04/08/17 08:02 04/08/17 08:02 Intake & Output 04/07/17 04/08/17 04/09/17 06:59 06:59 06:59 Output Total 1200 Balance -1200 - PIH/Pre-Eclampsia DTR's: 1 + Clonus: Negative Headache: Absent Epigastric Pain: No Visual Changes: No - Dressing Removed: No Incision: Open Closure Type: Surgical Glue - Lochia Lochia Amount: Scant < 10 ml Lochia Color: Rubra/Red - Abdomen Description: Soft, Round Hernia Present: No Fundal Description: Firm, Midline Fundal Height: u/u - u/2 Objective-Diagnostic Laboratory: 04/08/17 07:30 04/06/17 14:43 04/08/17 04/08/17 07:30 07:30 WBC 13.1 H RBC 3.89 Hgb 12.0 Hct 35.4 L MCV 91 MCH 30.8 MCHC 33.9 RDW 13.1 Plt Count 242 Blood Type A NEGATIVE Assessment and Plan(PN) - Assessment and Plan (1) Rh negative, delivered, current hospitalization Is this a current diagnosis for this admission?: Yes (2) Delivery by section of full-term Is this a current diagnosis for this admission?: Yes (3) Pre-eclampsia Qualifiers: Trimester: third trimester Qualified Code(s): O14.93 - Unspecified pre-eclampsia, third trimester Is this a current diagnosis for this admission?: Yes - Time Spent with Patient Time with patient: Less than 15 minutes Medications reviewed and adjusted accordingly: Yes - Disposition Anticipated Discharge: Home Within: within 48 hours
[2017-04-08] MEDS: OXYCODONE-ACETAMINOPHEN 5-325 MG TABLET PO PRN ×2 (09:43→22:06)
[2017-04-08] MEDS: DOCUSATE SODIUM 100 MG CAPSULE PO SCH ×2 (09:44→17:07)
[2017-04-08] MEDS: NIFEDIPINE 30 MG TAB.ER.24 PO SCH ×2 (09:44→21:08)
[2017-04-08] MEDS: PRENATAL VITAMIN W-O CA NO5/FE FUMARATE/FA CAPSULE PO SCH (09:44)
[2017-04-08 14:52] LABS: TOTAL RBC COUNT 2061; VOL OF FETOMATERNAL HEMORRHAGE 0 ML (0)
[2017-04-08 14:53] LABS: TYPE IN FILE? TYPE IN FILE
[2017-04-09] MEDS: IBUPROFEN 800 MG TABLET PO SCH ×4 (00:04→17:15)
[2017-04-09] MEDS: OXYCODONE-ACETAMINOPHEN 5-325 MG TABLET PO PRN (07:26)
[2017-04-09] MEDS: PRENATAL VITAMIN W-O CA NO5/FE FUMARATE/FA CAPSULE PO SCH (09:11)
[2017-04-09] MEDS: NIFEDIPINE 30 MG TAB.ER.24 PO SCH ×2 (09:12→21:59)
[2017-04-09] MEDS: DOCUSATE SODIUM 100 MG CAPSULE PO SCH ×2 (09:12→17:15)
--- NOTE | 2017-04-09 09:18 | PDOC PROGRESS REPORT ---
Subjective-OB Subjective: Post Delivery Day: 27 year old. Denies any needs at this time Doing well, skin to skin with baby, hsb at BS, no c/o, pain under control, baby not going home today, voiding, eating well Physical Exam (OB) Vital Signs: Temp Pulse Resp BP Pulse Ox 98.2 F 89 18 142/88 H 99 04/09/17 08:51 04/09/17 08:51 04/09/17 08:51 04/09/17 08:38 04/09/17 08:51 Intake & Output 04/08/17 04/09/17 04/10/17 06:59 06:59 06:59 Intake Total 1540 900 Output Total 1200 600 Balance -1200 940 900 - PIH/Pre-Eclampsia DTR's: 2 + Clonus: Negative Headache: Absent Epigastric Pain: No Visual Changes: No - Dressing Removed: No Incision: Open, Well Approximated Closure Type: Surgical Glue - Lochia Lochia Amount: Scant < 10 ml Lochia Color: Rubra/Red - Abdomen Description: Tender, Soft, Round Hernia Present: No Fundal Description: Firm, Midline Fundal Height: u/u - u/2 Objective-Diagnostic Laboratory: 04/08/17 07:30 04/06/17 14:43 04/08/17 07:30 Blood Type A NEGATIVE Antibody Screen Cancelled Assessment and Plan(PN) - Assessment and Plan (1) Rh negative, delivered, current hospitalization Is this a current diagnosis for this admission?: Yes (2) Delivery by section of full-term infant Is this a current diagnosis for this admission?: Yes (3) Pre-eclampsia Qualifiers: Trimester: third trimester Qualified Code(s): O14.93 - Unspecified pre-eclampsia, third trimester Is this a current diagnosis for this admission?: Yes - Time Spent with Patient Medications reviewed and adjusted accordingly: Yes - Disposition Anticipated Discharge: Home Within: within 24 hours
[2017-04-10] MEDS: IBUPROFEN 800 MG TABLET PO SCH ×3 (00:06→12:36)
[2017-04-10] MEDS: OXYCODONE-ACETAMINOPHEN 5-325 MG TABLET PO PRN (00:07)
[2017-04-10 08:24] VITALS: BP 142/84
--- NOTE | 2017-04-10 09:11 | PDOC DISCHARGE SUMMARY ---
Final Diagnosis Discharge Date: 04/10/17 - Final Diagnosis (1) Delivery by section of full-term infant Is this a current diagnosis for this admission?: Yes (2) Pre-eclampsia Is this a current diagnosis for this admission?: Yes (3) Rh negative, delivered, current hospitalization Is this a current diagnosis for this admission?: Yes Discharge Data - Discharge Medication Home Medications: Calcium Carbonate [Tums] 200 mg PO DAILY 04/04/17 Vit #76/Iron,Carb/FA [Prenatabs Rx Tablet] 1 tab PO DAILY 04/04/17 Ranitidine HCl [Zantac 75 mg Tablet] 75 mg PO DAILY 04/04/17 Docusate Sodium [Colace 100 mg Capsule] 100 mg PO BID #60 capsule 04/10/17 Ibuprofen [Motrin 800 mg Tablet] 800 mg PO Q6 #60 tablet 04/10/17 Nifedipine [Procardia XL 30 mg Tablet] 30 mg PO Q12 #60 tab.er.24 04/10/17 Oxycodone HCl/Acetaminophen [Percocet 5-325 mg Tablet] 2 tab PO Q4HP PRN #30 tablet 04/10/17 Gestational Age: 37.5 Reason(s) for Admission: Onset of Labor, PIH Procedures: NST Intrapartum Procedure(s): : Low Cervical, Transverse - [place] Data Baby 1 Female at 1 minute: 8 at 5 minutes: 9 Weight: 2980 kg Home with Mother: Yes Complications: No - Diagnosis Test Laboratory: Temp Pulse Resp BP Pulse Ox 97.9 F 80 20 142/84 H 100 04/10/17 08:15 04/10/17 08:15 04/10/17 08:15 04/10/17 08:15 04/10/17 08:15 04/04/17 04/04/17 04/05/17 15:00 16:20 05:01 RBC 4.26 4.57 Hgb 12.9 13.6 Hct 37.5 40.7 Urine Opiates Screen NEGATIVE 04/06/17 04/06/17 04/08/17 05:01 14:43 07:30 RBC 4.50 4.62 3.89 Hgb 13.4 13.4 12.0 Hct 39.5 41.0 35.4 L Urine Opiates Screen - Discharge information/Instructions Discharge Activity: Activity As Tolerated, No Driving, No Lifting Over 10 Pounds , Pelvic Rest, No tub bath Discharge Diet: Regular Disposition: HOME, SELF-CARE Follow up with: [facility] in: 1, Weeks
[2017-04-10] MEDS: PRENATAL VITAMIN W-O CA NO5/FE FUMARATE/FA CAPSULE PO SCH (10:26)
[2017-04-10] MEDS: DOCUSATE SODIUM 100 MG CAPSULE PO SCH (10:27)
[2017-04-10] MEDS: NIFEDIPINE 30 MG TAB.ER.24 PO SCH (10:27)
== END 2017-04-10 18:52 | disposition home or self-care (01) | DRG 766 ==
LOC: LR 14:48 → 2S 04-08 01:50
PROVIDERS: ADMIT Student in an Organized Health Care Education/Training Program; ATTEND Student in an Organized Health Care Education/Training Program
PROC: 10907ZC Drainage of Amniotic Fluid, Therapeutic from Products of Conception, Via Natural or Artificial Opening (ICD-10-PCS; 2017-04-06)
PROC: 3E0P7GC Introduction of Other Therapeutic Substance into Female Reproductive, Via Natural or Artificial Opening (ICD-10-PCS; 2017-04-06)
PROC: 3E033VJ Introduction of Other Hormone into Peripheral Vein, Percutaneous Approach (ICD-10-PCS; 2017-04-06)
PROC: 0U7C7ZZ Dilation of Cervix, Via Natural or Artificial Opening (ICD-10-PCS; 2017-04-06)
PROC: 10D00Z1 Extraction of Products of Conception, Low, Open Approach (ICD-10-PCS; principal; 2017-04-07)
PROC: 3E0234Z Introduction of Serum, Toxoid and Vaccine into Muscle, Percutaneous Approach (ICD-10-PCS; 2017-04-08)
DX: O15.1 Eclampsia complicating labor (principal); O36.0930 Maternal care for other rhesus isoimmunization, third trimester, not applicable or unspecified; O62.1 Secondary uterine inertia; O61.8 Other failed induction of labor; O61.1 Failed instrumental induction of labor; O61.0 Failed medical induction of labor; O69.81X0 Labor and delivery complicated by cord around neck, without compression, not applicable or unspecified; O33.9 Maternal care for disproportion, unspecified; Z3A.37 37 weeks gestation of pregnancy; Z37.0 Single live birth
CPT/HCPCS: 1961; 36415; 80053; 80307; 81001; 82570; 83615; 84156; 84550; 85025; 85027; 85460; 85461; 86592; 86850; 86870; 86900; 86901; C1726; J0131; J0330; J0360; J0690; J1100; J1170; J1885; J2250; J2270; J2300; J2370; J2405; J2550; J2590; J2704; J2790; J3010; J3475; J3490

== ENCOUNTER 2019-05-14 09:19 | Outpatient (CLI) | payer OTHER | END 2019-05-14 09:52 | disposition home or self-care (01) | LOC: LC 09:19 | PROVIDERS: ATTEND Student in an Organized Health Care Education/Training Program | PROC: 4A1HXCZ Monitoring of Products of Conception, Cardiac Rate, External Approach (ICD-10-PCS; principal; 2019-05-14) | DX: O10.913 Unspecified pre-existing hypertension complicating pregnancy, third trimester (principal); Z3A.37 37 weeks gestation of pregnancy | CPT/HCPCS: 59025 ==

== ENCOUNTER 2019-05-16 08:53 | Inpatient (IN) | payer OTHER ==
[2019-05-16] MEDS ORDERED: RINGERS SOLUTION,LACTATED 1,000 ML IV ONE (09:08)
[2019-05-16] MEDS ORDERED: CITRIC ACID/SODIUM CITRATE ORAL SOLN 15 ML UDCUP ONE (09:35)
[2019-05-16] MEDS ORDERED: CEFAZOLIN 1 GM/D5W RTU 2 GM/100 ML RTUPB IV ONE (09:35)
[2019-05-16 10:12] LABS: ABSOLUTE BASOPHILS # (AUTO) 0.1 10^3/uL (0.0-0.2); ABSOLUTE EOSINOPHILS # (AUTO) 0.1 10^3/uL (0.0-0.6); ABSOLUTE LYMPHOCYTES (AUTO) 1.5 10^3/uL (0.5-4.7); ABSOLUTE MONOCYTES (AUTO) 0.9 10^3/uL (0.1-1.4); ABSOLUTE NEUT (AUTO) 6.4 10^3/uL (1.7-8.2); BASOPHILS % (AUTO) 0.7 % (0-2); EOSINOPHILS % (AUTO) 0.7 % (0-6); HEMATOCRIT 37.9 % (36.0-47.0); MEAN CORPUSCULAR HEMOGLOBIN 28.8 pg (27.0-33.4); MEAN CORPUSCULAR HGB CONC 34.3 g/dL (32.0-36.0); MEAN CORPUSCULAR VOLUME 84 fl (80-97); MONOCYTES % (AUTO) 10.2 % (3-13); PLATELET COUNT 265 10^3/uL (150-450); RED BLOOD COUNT 4.53 10^6/uL (3.72-5.28); RED CELL DISTRIBUTION WIDTH 12.6 % (11.5-14.0); SEGMENTED NEUTROPHILS % (AUTO) 71.4 % (42-78); TOTAL CELLS COUNTED % (AUTO) 100 %
[2019-05-16] MEDS ORDERED: RINGERS SOLUTION,LACTATED 1,000 ML IV PRN (10:24)
[2019-05-16] MEDS ORDERED: ONDANSETRON HCL INJ/PF 4 MG/2 ML SDV ONE (10:26)
[2019-05-16] MEDS ORDERED: OXYTOCIN 10 UNIT/ML VIAL ONE (10:26)
[2019-05-16] MEDS ORDERED: PHENYLEPHRINE HCL INJ/PF 10 MG/1 ML SDV ONE (10:26)
[2019-05-16 10:31] LABS: ALBUMIN 3.1 g/dL (3.5-5.0); ALKALINE PHOSPHATASE 225 U/L (38-126); ANION GAP 7 (5-19); ASPARTATE AMINO TRANSFERASE 18 U/L (14-36); BILIRUBIN,DIRECT 0.1 mg/dL (0.0-0.4); BILIRUBIN,TOTAL 0.5 mg/dL (0.2-1.3); BLOOD UREA NITROGEN 6 mg/dL (7-20); CALCIUM 8.9 mg/dL (8.4-10.2); CARBON DIOXIDE 20 mmol/L (22-30); CHLORIDE 108 mmol/L (98-107); POTASSIUM 4.2 mmol/L (3.6-5.0); TOTAL PROTEIN 5.6 g/dL (6.3-8.2); URIC ACID 5.4 mg/dL (2.5-6.2)
[2019-05-16 10:34] LABS: GLUCOSE 64 mg/dL (75-110)
[2019-05-16 11:14] LABS: APPEARANCE,URINE CLOUDY; BILIRUBIN,URINE NEGATIVE (NEGATIVE); COLOR,URINE YELLOW; GLUCOSE, URINE NEGATIVE (NEGATIVE); KETONES,URINE NEGATIVE (NEGATIVE); LEUKOCYTE ESTERASE,URINE NEGATIVE (NEGATIVE); NITRITE,URINE NEGATIVE (NEGATIVE); PROTEIN,URINE 100 mg/dL (NEGATIVE); URINE SPECIFIC GRAVITY 1.014; UROBILINOGEN,URINE NEGATIVE mg/dL (<2.0)
[2019-05-16 11:30] LABS: URINE AMPHETAMINES SCREEN NEGATIVE; URINE BARBITURATES SCREEN NEGATIVE; URINE BENZODIAZEPINES SCREEN NEGATIVE; URINE COCAINE SCREEN NEGATIVE; URINE MARIJUANA (THC) SCREEN NEGATIVE; URINE METHADONE SCREEN NEGATIVE; URINE PHENCYCLIDINE SCREEN NEGATIVE
--- NOTE | 2019-05-16 11:36 | Admission Physical ---
Datetime Report Generated by CPN: 05/16/2019 11:35 CURRENT ADMISSION Chief Complaint: Other Indication for Induction: Not Applicable Admit Impression : Term, Intrauterine ; Ruptured Membranes; Repeat Section Admit Plan: Initiate Section Protocol ALLERGIES Medication Allergies: No Medication Allergies: No Known Allergies (05/16/2019) Latex: No Latex Allergies OBSTETRICAL HISTORY EDC: 06/01/2019 00:00 : 2 Para: 1 Term: 1 : 0 SAB: 0 IAB: 0 Ectopic: 0 Livin Cesareans: 1 VBACs: 0 Multiple Births: 0 Gestational Diabetes: No Rh Sensitization: No Incompetent Cervix: No DEENA: No Infertility: No ART Treatment: No Uterine Anomaly: No IUGR: No Hx Previous C/S: No Macrosomia: No Hx Loss/Stillborn: No PIH: No Hx : No Placenta Previa/Abruption: No Depression/PP Depression: No PTL/PROM: No Post Hemorrhage: No Obstetrical History Comments: G1: 37.5 primary c/s 6lb 7 oz female G2: current SEE RECORDS Alcohol: No Marijuana : No Cocaine: No Other Illicit Drugs: No Cigarettes: Never Smoker. 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 Heart Disease: No Hosp/Surgery: Yes Autoimmune Disorder: No Anesthetic Complications: No Kidney Disease: No Abnormal Pap Smear: No Neuro/Epilepsy: No Psychiatric Disorders: No Other Medical Diseases: No Hepatitis/Liver Disease: No Significant Family History: No Varicosities/Phlebitis: No Trauma/Violence : No Thyroid Dysfunction: No Medical History Comments: gallbladder removal 2018, 2017 INFECTIOUS HISTORY Gonorrhea: No Genital Herpes: No Chlamydia: No Tuberculosis: No Syphilis: No Hepatitis: No HIV/AIDS Exposure: No Rash or Viral Illness: No HPV: No PHYSICAL EXAM General: Normal HEENT: Normal Neurologic: Normal Thyroid: Normal Heart: Normal Lungs: Normal Breast: Deferred Back: Normal Abdomen: Normal Genitourinary Exam: Normal Extremities: Normal DTRs: Normal Pelvic Type: Adequate FETUS A EGA: 37.5 PLANS FOR LABOR AND DELIVERY Labor and Delivery: None Pain Management: Spinal Feeding Preference: Breast Benefit of Breast Feed Discussed: Yes Circumcision: N/A INFORMED CONSENT Signature: with User ID: [email or web address]
[2019-05-16] MEDS ORDERED: ACETAMINOPHEN 1,000 MG/100 ML RTUPB IV PRN (11:41)
[2019-05-16] MEDS ORDERED: OXYTOCIN/NORMAL SALINE 20 UNIT/1,000 ML RTUINJ IV PRN (11:41)
[2019-05-16] MEDS ORDERED: MORPHINE SULFATE 10 MG/ML INJ IM PRN (11:41)
[2019-05-16] MEDS ORDERED: DIPH/PERTUSS(ACELL)/TETANUS VAC/PF 0.5 ML SYR (>=10YO) IM PRN ×2 (11:41→13:30)
[2019-05-16] MEDS ORDERED: ACETAMINOPHEN 325 MG TABLET PO PRN (11:41)
[2019-05-16] MEDS ORDERED: SIMETHICONE 80 MG TAB.CHEW PO PRN (11:41)
[2019-05-16] MEDS ORDERED: MEASLES,MUMPS&RUBELLA VACC/PF 0.5 ML VIAL SUBCUT PRN ×2 (11:41→13:30)
[2019-05-16] MEDS ORDERED: PROMETHAZINE HCL INJ 25 MG/1 ML VIAL IV PRN ×2 (11:41→13:30)
[2019-05-16] MEDS ORDERED: OXYTOCIN/NORMAL SALINE 20 UNIT/1,000 ML RTUINJ ONE (11:51)
[2019-05-16] MEDS ORDERED: ACETAMINOPHEN 1,000 MG/100 ML RTUPB IV ONE (11:51)
--- NOTE | 2019-05-16 11:51 | Operative Report ---
Operative Report DATE OF SURGERY: 05/16/19 PREOPERATIVE DIAGNOSIS: IUP 38 weeks prior section rupture of membranes POSTOPERATIVE DIAGNOSIS: Same plus breech presentation OPERATION: Repeat low transverse section delivery of a viable female Apgars of 8 and 9 weight 8 pounds 1 ounce SURGEON: PATRICE GOODRICH ANESTHESIA: Spinal TISSUE REMOVED OR ALTERED: Placenta COMPLICATIONS: None ESTIMATED BLOOD LOSS: Approximately 800 cc PROCEDURE: The patient was taken to the operating room where spinal anesthesia was obtained and found to be adequate. She was then prepped and draped in the normal sterile fashion and placed in the dorsal supine position with a leftward tilt. A Pfannenstiel skin incision was then made and carried through to the underlying layers of the fascia with the scalpel. The fascia was incised in the midline and the incision extended laterally with the [place] scissors. The s uperior aspect of the fascial incision was then grasped with [place] clamps elevated and the underlying rectus muscles dissected off peritoneum. Attention was then turned to the inferior aspect of the fascial incision which in a similar fashion was grasped, tented up with Felicia clamps, and the rectus muscles dissected off the peritoneum. The rectus muscles were then in the midline and the peritoneum identified and entered sharply. The peritoneal incision was then extended superiorly and inferiorly with good visualization of the bladder. The bladder blade was inserted and the vesicouterine peritoneum identified grasped with [place] pickups and entered sharply with the Metzenbaum scissors. His incision was then extended laterally with the Metzenbaum scissors and a bladder flap created digitally. The bladder blade was then reinserted and the lower uterine segment incised in a transverse fashion with the scalpel. The uterine incision was then extended bluntly. The bladder blade was removed and the infant's head was delivered from cephalic presentation atraumatically. The nose and mouth were suctioned and the cord doubly clamped and cut. And the was handed off to waiting pediatricians. The placenta was then delivered manully and the uterus exteriorized and cleared of all clots and debris. The uterine incision was then repaired with 1-0 Vicryl in a running locked fashion. A second layer of the same suture was used to obtain hemostasis via imbrication of the initial layer. The uterus was returned to the patient's abdomen. The gutters were cleared of all clots and debris. All operative sites were noted to be hemostatic. The fascia was reapproximated with 0 Vicryl in a running fashion from each lateral edge to the midline. Skin was closed and approximated using subcutaneous absorbable theo. The patient tolerated the procedure well. Sponge lap needle and instrument counts are correct -2. 2 g of Ancef were given prior to skin incisio n. The patient was taken to the recovery area awake and in stable condition.
[2019-05-16] MEDS ORDERED: MEPERIDINE HCL/PF INJ 25 MG/1 ML DISP.SYRIN ONE (12:32)
--- NOTE | 2019-05-16 12:54 | Warning Signs in Babies ---
VOD Warning Signs Datetime Report Generated by [facility]: 05/16/2019 12:54 VOD#608 -Warning Signs in Babies: Needs to be viewed. (05/14/2019 09:26:Bing Brock RN)
[2019-05-16 12:55] LABS: ABSOLUTE BASOPHILS # (AUTO) 0.1 10^3/uL (0.0-0.2); ABSOLUTE EOSINOPHILS # (AUTO) 0.1 10^3/uL (0.0-0.6); ABSOLUTE LYMPHOCYTES (AUTO) 1.2 10^3/uL (0.5-4.7); ABSOLUTE MONOCYTES (AUTO) 0.7 10^3/uL (0.1-1.4); ABSOLUTE NEUT (AUTO) 7.9 10^3/uL (1.7-8.2); BASOPHILS % (AUTO) 0.9 % (0-2); EOSINOPHILS % (AUTO) 0.5 % (0-6); HEMATOCRIT 34.9 % (36.0-47.0); HEMOGLOBIN 12.1 g/dL (12.0-15.5); LYMPHOCYTES % (AUTO) 12.4 % (13-45); MEAN CORPUSCULAR HEMOGLOBIN 29.2 pg (27.0-33.4); MEAN CORPUSCULAR HGB CONC 34.7 g/dL (32.0-36.0); MEAN CORPUSCULAR VOLUME 84 fl (80-97); MONOCYTES % (AUTO) 7.4 % (3-13); PLATELET COUNT 244 10^3/uL (150-450); RED BLOOD COUNT 4.15 10^6/uL (3.72-5.28); RED CELL DISTRIBUTION WIDTH 12.7 % (11.5-14.0); SEGMENTED NEUTROPHILS % (AUTO) 78.8 % (42-78); TOTAL CELLS COUNTED % (AUTO) 100 %
[2019-05-16] MEDS: KETOROLAC TROMETHAMINE INJ/PF 30 MG/1 ML SDV IV SCH ×2 (14:11→21:43)
[2019-05-16] MEDS: OXYCODONE-ACETAMINOPHEN 5-325 MG TABLET PO PRN ×2 (16:21→21:42)
[2019-05-16] MEDS: DOCUSATE SODIUM 100 MG CAPSULE PO SCH (18:11)
[2019-05-17] MEDS: OXYCODONE-ACETAMINOPHEN 5-325 MG TABLET PO PRN ×4 (03:20→20:57)
[2019-05-17] MEDS ORDERED: KETOROLAC TROMETHAMINE 60 MG/2 ML SDV ONE (05:06)
[2019-05-17] MEDS: KETOROLAC TROMETHAMINE INJ/PF 30 MG/1 ML SDV IV SCH (05:19)
[2019-05-17 06:59] LABS: HEMOGLOBIN 11.4 g/dL (12.0-15.5); MEAN CORPUSCULAR HEMOGLOBIN 29.1 pg (27.0-33.4); MEAN CORPUSCULAR HGB CONC 34.4 g/dL (32.0-36.0); MEAN CORPUSCULAR VOLUME 85 fl (80-97); PLATELET COUNT 247 10^3/uL (150-450); RED CELL DISTRIBUTION WIDTH 12.5 % (11.5-14.0)
--- NOTE | 2019-05-17 09:16 | PDOC PROGRESS REPORT ---
Subjective-OB Progress Note for:: 05/17/19 Subjective: Doing well, OOB to br, voiding, passing gas, pain under control Physical Exam (OB) Vital Signs: Temp Pulse Resp BP Pulse Ox 97.7 F 67 12 127/68 H 99 05/17/19 07:15 05/17/19 07:15 05/17/19 07:15 05/17/19 07:15 05/17/19 07:15 Intake & Output 05/16/19 05/17/19 05/18/19 06:59 06:59 06:59 Intake Total 1100 Output Total 1100 Balance 0 Weight 114 kg - PIH/Pre-Eclampsia DTR's: 1 + Clonus: Negative Headache: Absent Epigastric Pain: No Visual Changes: No - Dressing Removed: No Incision: Dressing Closure Type: pressure - Lochia Lochia Amount: Scant < 10 ml Lochia Color: Rubra/Red - Abdomen Description: Soft, Round Hernia Present: No Fundal Description: Firm, Midline Describe if Not Midline: displaced to the right Fundal Height: u/u - u/2 Objective-Diagnostic Laboratory: 05/17/19 06:28 05/16/19 09:53 05/16/19 05/16/19 05/16/19 09:02 09:53 09:53 WBC 9.0 RBC 4.53 Hgb 13.0 Hct 37.9 MCV 84 MCH 28.8 MCHC 34.3 RDW 12.6 Plt Count 265 Seg Neutrophils % 71.4 Sodium Potassium Chloride Carbon Dioxide Anion Gap BUN Creatinine Est GFR ( Amer) Glucose Uric Acid Calcium Total Bilirubin AST Alkaline Phosphatase Total Protein Albumin Urine Color YELLOW Urine Appearance CLOUDY Urine pH 7.0 Ur Specific [employer] [place] [place] 1.014 Urine Protein 100 H Urine Glucose (UA) NEGATIVE Urine Ketones NEGATIVE Urine Blood MODERATE H Urine Nitrite NEGATIVE Ur Leukocyte Esterase NEGATIVE Blood Type A NEGATIVE Antibody Screen POSITIVE 05/16/19 05/16/19 05/17/19 09:53 12:39 06:28 WBC 10.0 10.0 RBC 4.15 3.90 Hgb 12.1 11.4 L Hct 34.9 L 33.0 L MCV 84 85 MCH 29.2 29.1 MCHC 34.7 34.4 RDW 12.7 12.5 Plt Count 244 247 Seg Neutrophils % 78.8 H Sodium 135.1 L Potassium 4.2 Chloride 108 H Carbon Dioxide 20 L Anion Gap 7 BUN 6 L Creatinine 0.52 Est GFR ( Amer) > 60 Glucose 64 L Uric Acid 5.4 Calcium 8.9 Total Bilirubin 0.5 AST 18 Alkaline Phosphatase 225 H Total Protein 5.6 L Albumin 3.1 L Urine Color Urine Appearance Urine pH Ur Specific [employer] [place] Urine Protein Urine Glucose (UA) Urine Ketones Urine Blood Urine Nitrite Ur Leukocyte Esterase Blood Type Antibody Screen 05/17/19 06:28 WBC RBC Hgb Hct MCV MCH MCHC RDW Plt Count Seg Neutrophils % Sodium Potassium Chloride Carbon Dioxide Anion Gap BUN Creatinine Est GFR ( Amer) Glucose Uric Acid Calcium Total Bilirubin AST Alkaline Phosphatase Total Protein Albumin Urine Color Urine Appearance Urine pH Ur Specific [employer] [place] [place] Urine Protein Urine Glucose (UA) Urine Ketones Urine Blood Urine Nitrite Ur Leukocyte Esterase Blood Type A NEGATIVE Antibody Screen Assessment and Plan(PN) - Assessment and Plan (1) Rh negative, delivered, current hospitalization Is this a current diagnosis for this admission?: Yes (2) Delivery by section of full-term Is this a current diagnosis for this admission?: Yes (3) Pre-eclampsia Qualifiers: Trimester: third trimester Qualified Code(s): O14.93 - Unspecified pre-eclampsia, third trimester Is this a current diagnosis for this admission?: Yes - Time Spent with Patient Time with patient: Less than 15 minutes Medications reviewed and adjusted accordingly: Yes - Disposition Anticipated Discharge: Home Within: within 24 hours
--- NOTE | 2019-05-17 09:17 | PDOC DISCHARGE SUMMARY ---
Final Diagnosis Discharge Date: 05/18/19 - Final Diagnosis (1) Rh negative, delivered, current hospitalization Is this a current diagnosis for this admission?: Yes (2) Delivery by section of full-term infant Is this a current diagnosis for this admission?: Yes (3) Pre-eclampsia Is this a current diagnosis for this admission?: Yes Discharge Data - Discharge Medication Prescriptions: Oxycodone HCl/Acetaminophen [Percocet 5-325 mg Tablet] 2 tab PO Q4HP PRN #20 tablet PRN Reason: Ibuprofen [Motrin 800 mg Tablet] 800 mg PO Q6 #60 tablet Home Medications: Prenat 115/Iron Fum/Folic/Dss [ 19 Tablet] 1 tab PO DAILY 05/16/19 Ibuprofen [Motrin 800 mg Tablet] 800 mg PO Q6 #60 tablet 05/17/19 Oxycodone HCl/Acetaminophen [Percocet 5-325 mg Tablet] 2 tab PO Q4HP PRN #20 tablet 05/17/19 Gestational Age: 37.5 Reason(s) for Admission: Ceasarean Section-Repeat, PROM Procedures: NST, Ultrasound Intrapartum Procedure(s): : Low Cervical, Transverse - [place] Data Baby 1 Female at 1 minute: 8 at 5 minutes: 9 Weight: 3.657 kg Home with Mother: Yes Complications: No - Diagnosis Test Laboratory: Temp Pulse Resp BP Pulse Ox 97.7 F 67 12 127/68 H 99 05/17/19 07:15 05/17/19 07:15 05/17/19 07:15 05/17/19 07:15 05/17/19 07:15 05/16/19 05/16/19 05/16/19 09:02 09:53 12:39 RBC 4.53 4.15 Hgb 13.0 12.1 Hct 37.9 34.9 L Urine Opiates Screen NEGATIVE 05/17/19 06:28 RBC 3.90 Hgb 11.4 L Hct 33.0 L Urine Opiates Screen - Discharge information/Instructions Discharge Activity: Activity As Tolerated, Balance Activity w/Rest, No Lifting Over 10 Pounds, No Lifting/Push/Pulling, Pelvic Rest Discharge Diet: As Tolerated Disposition: HOME, SELF-CARE Follow up with: [facility] in: 1, Weeks
[2019-05-17] MEDS: DOCUSATE SODIUM 100 MG CAPSULE PO SCH ×2 (09:52→17:10)
[2019-05-17] MEDS: PRENATAL VITAMIN W DHA CAPSULE PO SCH (09:53)
[2019-05-17] MEDS ORDERED: PRENATAL VITAMIN W DHA CAPSULE PO SCH (10:00)
[2019-05-17] MEDS: IBUPROFEN 800 MG TABLET PO SCH ×2 (11:17→17:10)
[2019-05-18] MEDS: IBUPROFEN 800 MG TABLET PO SCH ×2 (00:21→06:25)
[2019-05-18] MEDS: OXYCODONE-ACETAMINOPHEN 5-325 MG TABLET PO PRN ×2 (04:15→08:34)
--- NOTE | 2019-05-18 09:41 | PDOC PROGRESS REPORT ---
Subjective-OB Progress Note for:: 05/18/19 Subjective: Feeling better today, hsb holding baby, ambulating, voiding, scant bleeding, pain under control Physical Exam (OB) Vital Signs: Temp Pulse Resp BP Pulse Ox 98.4 F 79 24 H 111/60 98 05/18/19 03:03 05/18/19 03:03 05/18/19 03:03 05/18/19 03:03 05/18/19 03:03 Intake & Output 05/17/19 05/18/19 05/19/19 06:59 06:59 06:59 Intake Total 1100 300 Output Total 1100 Balance 0 300 Weight 114 kg Baby 1 Female 3.657 kg - PIH/Pre-Eclampsia DTR's: 1 + Clonus: Negative Headache: Absent Epigastric Pain: No Visual Changes: No - Dressing Removed: No Incision: Dressing Closure Type: pressure - Lochia Lochia Amount: Scant < 10 ml Lochia Color: Rubra/Red - Abdomen Description: Soft, Round Hernia Present: No Fundal Description: Firm, Midline Describe if Not Midline: displaced to the right Fundal Height: u/u - u/2 Objective-Diagnostic Laboratory: 05/17/19 06:28 05/16/19 09:53 05/17/19 06:28 Blood Type A NEGATIVE Assessment and Plan(PN) - Assessment and Plan (1) Rh negative, delivered, current hospitalization Is this a current diagnosis for this admission?: Yes (2) Delivery by section of full-term Is this a current diagnosis for this admission?: Yes (3) Pre-eclampsia Qualifiers: Trimester: third trimester Qualified Code(s): O14.93 - Unspecified pre-ec lampsia, third trimester Is this a current diagnosis for this admission?: Yes - Time Spent with Patient Time with patient: Less than 15 minutes Medications reviewed and adjusted accordingly: Yes - Disposition Anticipated Discharge: Home Within: within 24 hours
[2019-05-18 10:08] VITALS: BP 142/83
[2019-05-18] MEDS: PRENATAL VITAMIN W DHA CAPSULE PO SCH (10:27)
[2019-05-18] MEDS: DOCUSATE SODIUM 100 MG CAPSULE PO SCH (10:27)
--- NOTE | 2019-05-21 15:31 | Delivery Summary ---
Del Sum A-C Datetime Report Generated by CPN: 05/21/2019 15:30 DELIVERY PERSONNEL DELIVERY PERSONNEL: [id number] Delivery Doctor:: Vladislav Iverson MD Anesthesiologist:: Mima Medellin MD PLASTIC MOULD MAKER:: Castro Corrigan CRNA Machine Packer:: Bing Brock RN Foil Stamp Operator:: Dr. Malachi Hurtado Pipe Fittings Molder/REHAB DIRECTOR OCCUPATIONAL THERAPIST: Bernadine Rioz CST Pipe Fittings Molder/REHAB DIRECTOR OCCUPATIONAL THERAPIST: Cher Pulido, ST MATERNAL INFORMATION Delivery Anesthesia: Spinal Medications After Delivery: Pitocin Bolus-Please Comment; Pitocin Drip 20 Units/1000ml NSS Delivery QBL: 250 Maternal Complications: None; Premature Rupture of Membranes LABOR SUMMARY EDC: 06/01/2019 00:00 No. Babies in Womb: 1 LABOR INFORMATION Reason for Induction: Premature Rupture of Membranes Oxytocin: N/A Group B Beta Strep: negative Steroids Given: None Reason Steroids Not Administered: Not Applicable MEMBRANES Membranes Rupture Method: Spontaneous Rupture of Membranes: 05/16/2019 08:00 Length of Rupture (hr): 3.30 Amniotic Fluid Color: Clear Amniotic Fluid Amount: Moderate Amniotic Fluid Odor: Normal STAGES OF LABOR Stage 3 hr: 0 Stage 3 min: 1 VAGINAL DELIVERY Episiotomy: None Laceration #1: None Laceration Extension #1: N/A Sponge Count Correct: N/A CSECTION DELIVERY Primary Indication: Repeat Elective CSection Urgency: Non-Scheduled CSection Incidence: Repeat Labor: No Labor Elective: Nonelective CSection Incision: Lower Uterine Transverse BABY A INFORMATION Infant Delivery Date/Time: 05/16/2019 11:18 Method of Delivery: Born in Route : No : N/A Forceps: N/A Vacuum Extraction: N/A Shoulder Dystocia : No PRESENTATION/POSITION BABY A Presentation: Breech Cephalic Presentation: N/A Breech Presentation: Wojciech PLACENTA INFORMATION BABY A Placenta Delivery Time : 05/16/2019 11:19 Placenta Method of Delivery: Manual Removal Placenta Status: Delivered SCORES BABY A Heart Rate 1 min: >100 bpm Resp Effort 1 min: Good Cry Reflex Irritability 1 min: Cough or Sneeze or Pulls Away Muscle Tone 1 min: Active Motion Color 1 min: Blue/Pale SCORE 1 MIN: 8 Heart Rate 5 min: >100 bpm Resp Effort 5 min: Good Cry Reflex Irritability 5 min: Cough or Sneeze or Pulls Away Muscle Tone 5 min: Active Motion Color 5 min: Body [place], Extremities Blue SCORE 5 MIN: 9 INFORMATION BABY A Gestational Age at Delivery: 37.5 Gestational Status: Early Term- 37- 38.6 Weeks Outcome : Liveborn Condition : Stable Sex: Female IDENTIFICATION BABY A Verification Date/Time: 05/16/2019 11:18 ID Band Number: [id number] Mother's Name Verified: Yes RN Verifying Infant: Aan Brock RN _ Sabrina López RN WEIGHT/LENGTH BABY A Birthweight (gm): 3645 Weight (lb): 8 Infant Weight (oz): 1 Length (in): 20.25 Length (cm): 51.44 CORD INFORMATION BABY A No. Cord Vessels: 3 Nuchal Cord : N/A Cord Blood Taken: Yes-For Eval (Mom's Blood Type - or O+) Suction: Mouth; Nose ASSESSMENT BABY A Skin to Skin: Yes Skin to Skin Time (min): baby at bedside with father and nursery BABY B INFORMATION : N/A SIGNATURES Signature: with User ID: [email or web address]
== END 2019-05-18 13:30 | disposition home or self-care (01) | DRG 788 ==
LOC: LC 08:53 → LR 09:16 → 2S 13:45
PROVIDERS: ADMIT Obstetrics & Gynecology Gynecology; ATTEND Obstetrics & Gynecology Gynecology
PROC: 10D00Z1 Extraction of Products of Conception, Low, Open Approach (ICD-10-PCS; principal; 2019-05-16)
PROC: 3E0234Z Introduction of Serum, Toxoid and Vaccine into Muscle, Percutaneous Approach (ICD-10-PCS; 2019-05-17)
DX: O42.92 Full-term premature rupture of membranes, unspecified as to length of time between rupture and onset of labor (principal); O34.211 Maternal care for low transverse scar from previous cesarean delivery; O32.1XX0 Maternal care for breech presentation, not applicable or unspecified; O26.893 Other specified pregnancy related conditions, third trimester; O14.94 Unspecified pre-eclampsia, complicating childbirth; Z37.0 Single live birth; Z67.91 Unspecified blood type, Rh negative; Z3A.37 37 weeks gestation of pregnancy
CPT/HCPCS: 1961; 36415; 80053; 80307; 81005; 83615; 84550; 85025; 85027; 85461; 86592; 86850; 86870; 86900; 86901; 94760; 94799; J0131; J0690; J1885; J2175; J2370; J2405; J2590; J2790; J3490